=== PATIENT | male | born 1950 | race Two or more races ===

== ENCOUNTER 2020-06-01 15:50 | Inpatient (IN) | payer MEDICAID ==
[~2020-06-01] VITALS: Ht 165.1 cm; Wt 82.6 kg
[2020-06-01] MEDS ORDERED: SODIUM CHLORIDE 0.9% 1,000 ML IV ONE (16:28)
[2020-06-01 16:57] LABS: BASOPHILS % 0.5 % (0.0-2.0); EOSINOPHILS % 4.6 % (0.0-5.0); HEMATOCRIT. 39.2 % (42.0-52.0); HEMOGLOBIN. 13.2 g/dL (14.0-18.0); LYMPHOCYTES % 16.7 % (20.0-50.0); MEAN CORPUSCULAR HEMOGLOBIN 30.4 pg (28.0-32.0); MEAN CORPUSCULAR VOLUME 90.8 fL (80.0-94.0); MEAN PLATELET VOLUME 8.2 fl (7.4-10.4); MONOCYTES % 3.5 % (2.0-8.0); NEUTROPHILS % 74.7 % (40.0-76.0); PLATELET 236 x1000/uL (130-400); RED BLOOD CELL COUNT 4.32 mill/uL (4.7-6.1); RED CELL DISTRIBUTION WIDTH 14.4 % (11.6-14.6)
[2020-06-01 17:02] LABS: CHLORIDE 104 mEq/L (98-107)
[2020-06-01 17:04] LABS: PARTIAL THROMBOPLASTIN TIME 30.9 sec (23.4-31.0); PROTHROMBIN TIME 10.9 sec (9.6-11.0)
[2020-06-01 17:06] LABS: ETHANOL BLOOD < 10 mg/dL
[2020-06-01 17:07] LABS: CLARITY URINE CLEAR (CLEAR); COLOR URINE YELLOW (YELLOW); KETONES URINE 2+ (NEGATIVE); LEUKOCYTE ESTERASE URINE NEGATIVE (NEGATIVE); NITRITE URINE NEGATIVE (NEGATIVE); OCCULT BLOOD URINE TRACE (NEGATIVE); PH URINE 6.5 (4.5-8.0); PROTEIN URINE TRACE (NEGATIVE); SPECIFIC GRAVITY URINE 1.028 (1.005-1.030)
[2020-06-01 17:29] LABS: *AMPHETAMINES SCREEN URINE NEGATIVE (NEGATIVE); *BARBITURATES SCREEN URINE NEGATIVE (NEGATIVE); *COCAINE SCREEN URINE NEGATIVE (NEGATIVE)
[2020-06-01 17:30] LABS: *BENZODIAZEPINES SCREEN URINE NEGATIVE (NEGATIVE); METHADONE URINE SCREEN NEGATIVE (NEGATIVE)
[2020-06-01] MEDS ORDERED: ACETAMINOPHEN 325MG TABLET PO ONE (17:30)
[2020-06-01 17:31] LABS: CANNABINOID URINE SCREEN NEGATIVE (NEGATIVE); OPIATES URINE SCREEN NEGATIVE (NEGATIVE); PHENCYCLIDINE URINE SCREEN NEGATIVE (NEGATIVE)
[2020-06-01] MEDS ORDERED: PIPERACILLIN/TAZ 3.375G PREMIX 50 ML IV ONE (19:00)
[2020-06-01] MEDS ORDERED: VANCOMYCIN 1 G PREMIX 200 ML IV ONE (19:00)
[2020-06-01] MEDS ORDERED: NOREPINEPHRINE 4MG/250ML PMX 250 ML IV PRN (23:15)
[2020-06-01] MEDS ORDERED: SODIUM CHLORIDE 0.9% 1,000 ML IV NR (23:15)
[2020-06-02 05:53] VITALS: BP 127/70
[2020-06-02 05:54] VITALS: BP 127/70
[2020-06-02] MEDS ORDERED: ATORVASTATION PO (06:06)
[2020-06-02] MEDS ORDERED: METFORMIN PO (06:06)
[2020-06-02] MEDS ORDERED: INSULIN SUBCON (06:06)
[2020-06-02] MEDS ORDERED: ASPIRIN PO (06:06)
[2020-06-02] MEDS ORDERED: METF-414 PO (06:08)
[2020-06-02] MEDS ORDERED: ASPI-1497 PO (06:09)
[2020-06-02] MEDS ORDERED: ATOR10TA69 PO (06:09)
[2020-06-02] MEDS ORDERED: DEXTROSE 50% WATER 50ML SYRINGE IV PRN (06:30)
[2020-06-02] MEDS ORDERED: ALBUTEROL 6.7GM HFA INHALER ORI SCH (08:00)
[2020-06-02] MEDS: BLOOD SUGAR DIAGNOSTIC STRIP TEST SCH ×4 (08:28→20:21)
[2020-06-02] MEDS ORDERED: DEXAMETHASONE 4MG TABLET PO SCH (09:00)
[2020-06-02] MEDS ORDERED: AZITHROMYCIN 500 MG in DEXT 5% WATER 250 ML IV SCH (09:00)
[2020-06-02] MEDS: ENOXAPARIN 40MG/0.4ML SYR SUBCUT SCH (09:22)
[2020-06-02] MEDS: ACETAMINOPHEN 325MG TABLET PO PRN ×2 (09:25→17:52)
[2020-06-02] MEDS: METFORMIN HCL 500MG TABLET PO SCH ×2 (09:25→17:51)
[2020-06-02] MEDS: INSULIN LISPRO 100 UNITS/ML SUBCUT SCH ×4 (09:27→20:20)
[2020-06-02 09:42] VITALS: BP 109/73
[2020-06-02] MEDS ORDERED: INSULIN GLARGINE UD 100 UNITS/ML SYR SUBCUT SCH (10:00)
[2020-06-02] MEDS: INSULIN GLARGINE UD 100 UNITS/ML SYR SUBCUT SCH ×2 (10:58→23:16)
[2020-06-02 12:36] VITALS: BP 79/44
[2020-06-02] MEDS: ALBUTEROL (0.083%) 2.5MG/3ML NEB HHN SCH (15:00)
[2020-06-02] MEDS: CEFTRIAXONE 1,000 MG in DEXTROSE 5% WATER 50 ML IV SCH (15:11)
[2020-06-02 16:10] VITALS: BP 116/67
[2020-06-02 20:03] VITALS: BP 95/60
[2020-06-02] MEDS: ATORVASTATIN CALCIUM 40MG TABLET PO SCH (20:20)
[2020-06-03 00:15] VITALS: BP 101/53
[2020-06-03 04:44] VITALS: BP 104/61
[2020-06-03 06:14] LABS: BASOPHILS % 0.3 % (0.0-2.0); EOSINOPHILS % 0.2 % (0.0-5.0); HEMATOCRIT. 35.8 % (42.0-52.0); HEMOGLOBIN. 11.9 g/dL (14.0-18.0); LYMPHOCYTES % 15.4 % (20.0-50.0); MEAN CORPUSCULAR VOLUME 89.7 fL (80.0-94.0); MEAN PLATELET VOLUME 8.3 fl (7.4-10.4); NEUTROPHILS % 81.1 % (40.0-76.0); PLATELET 256 x1000/uL (130-400); RED BLOOD CELL COUNT 3.99 mill/uL (4.7-6.1)
[2020-06-03 06:27] LABS: CHLORIDE 106 mEq/L (98-107)
[2020-06-03] MEDS: BLOOD SUGAR DIAGNOSTIC STRIP TEST SCH ×4 (06:38→21:47)
[2020-06-03 08:33] VITALS: BP 103/59
[2020-06-03] MEDS: METFORMIN HCL 500MG TABLET PO SCH ×2 (09:05→17:41)
[2020-06-03] MEDS: CEFTRIAXONE 1,000 MG in DEXTROSE 5% WATER 50 ML IV SCH (09:06)
[2020-06-03] MEDS: ENOXAPARIN 40MG/0.4ML SYR SUBCUT SCH (09:06)
[2020-06-03] MEDS: INSULIN LISPRO 100 UNITS/ML SUBCUT SCH ×4 (09:09→21:49)
[2020-06-03] MEDS: INSULIN GLARGINE UD 100 UNITS/ML SYR SUBCUT SCH ×2 (11:12→21:50)
[2020-06-03 12:03] VITALS: BP 151/128
[2020-06-03] MEDS: ACETAMINOPHEN 325MG TABLET PO PRN (15:28)
[2020-06-03 16:14] VITALS: BP 106/59
[2020-06-03 20:00] VITALS: BP 95/53
[2020-06-03] MEDS: ATORVASTATIN CALCIUM 40MG TABLET PO SCH (21:47)
[2020-06-03] MEDS: ALBUTEROL (0.083%) 2.5MG/3ML NEB HHN SCH (21:48)
[2020-06-03] MEDS ORDERED: VANCOMYCIN 1250MG in DEXTROSE 5% WATER 250ML IV NR (23:00)
[2020-06-04] VITALS: BP 94/66
[2020-06-04] MEDS: ALBUTEROL (0.083%) 2.5MG/3ML NEB HHN SCH ×4 (02:39→20:32)
[2020-06-04 04:00] VITALS: BP 100/50
[2020-06-04] MEDS: ACETAMINOPHEN 325MG TABLET PO PRN ×2 (06:01→16:17)
[2020-06-04] MEDS: BLOOD SUGAR DIAGNOSTIC STRIP TEST SCH ×4 (06:45→21:00)
[2020-06-04] MEDS ORDERED: GLIPIZIDE 5MG TABLET PO SCH (07:20)
[2020-06-04] MEDS: INSULIN LISPRO 100 UNITS/ML SUBCUT SCH ×4 (07:50→21:00)
[2020-06-04 08:00] VITALS: BP 82/50
[2020-06-04] MEDS: ENOXAPARIN 40MG/0.4ML SYR SUBCUT SCH (09:06)
[2020-06-04] MEDS: METFORMIN HCL 500MG TABLET PO SCH ×2 (09:06→18:29)
[2020-06-04] MEDS: CEFTRIAXONE 1,000 MG in DEXTROSE 5% WATER 50 ML IV SCH (09:07)
[2020-06-04] MEDS: INSULIN GLARGINE UD 100 UNITS/ML SYR SUBCUT SCH ×2 (10:28→21:08)
[2020-06-04] MEDS ORDERED: VANCOMYCIN 750 MG PREMIX 150 ML IV SCH (11:00)
[2020-06-04 12:00] VITALS: BP 112/55
[2020-06-04] MEDS: VANCOMYCIN 1 G PREMIX 200 ML IV SCH ×2 (12:07→22:42)
[2020-06-04 14:41] LABS: BASOPHILS % 0.5 % (0.0-2.0); EOSINOPHILS % 4.7 % (0.0-5.0); HEMATOCRIT. 35.7 % (42.0-52.0); HEMOGLOBIN. 12.2 g/dL (14.0-18.0); MEAN CORPUSCULAR HEMOGLOBIN 30.3 pg (28.0-32.0); MEAN CORPUSCULAR VOLUME 88.9 fL (80.0-94.0); MEAN PLATELET VOLUME 7.3 fl (7.4-10.4); MONOCYTES % 7.5 % (2.0-8.0); NEUTROPHILS % 56.3 % (40.0-76.0); PLATELET 281 x1000/uL (130-400); RED BLOOD CELL COUNT 4.02 mill/uL (4.7-6.1); RED CELL DISTRIBUTION WIDTH 14.2 % (11.6-14.6)
[2020-06-04 14:52] LABS: CHLORIDE 104 mEq/L (98-107)
[2020-06-04] MEDS ORDERED: LANTUSUD SUBCUT (14:55)
[2020-06-04] MEDS ORDERED: POTASSIUM CHLORIDE 20MEQ TABLET SR PO NR (15:00)
[2020-06-04 16:00] VITALS: BP 100/53
[2020-06-04 20:38] VITALS: BP 92/60
[2020-06-04] MEDS: ATORVASTATIN CALCIUM 40MG TABLET PO SCH (20:49)
[2020-06-05] VITALS: BP 96/62
[2020-06-05] MEDS: ACETAMINOPHEN 325MG TABLET PO PRN (01:17)
[2020-06-05] MEDS: ALBUTEROL (0.083%) 2.5MG/3ML NEB HHN SCH ×3 (02:52→12:49)
[2020-06-05 04:00] VITALS: BP 94/62
[2020-06-05] MEDS: BLOOD SUGAR DIAGNOSTIC STRIP TEST SCH ×2 (06:34→12:39)
[2020-06-05] MEDS: INSULIN LISPRO 100 UNITS/ML SUBCUT SCH ×2 (07:50→12:39)
[2020-06-05 08:00] VITALS: BP 108/59
[2020-06-05] MEDS: CEFTRIAXONE 1,000 MG in DEXTROSE 5% WATER 50 ML IV SCH (08:33)
[2020-06-05] MEDS: METFORMIN HCL 500MG TABLET PO SCH (08:43)
[2020-06-05] MEDS: ENOXAPARIN 40MG/0.4ML SYR SUBCUT SCH (08:50)
[2020-06-05] MEDS: INSULIN GLARGINE UD 100 UNITS/ML SYR SUBCUT SCH (10:21)
[2020-06-05] MEDS: VANCOMYCIN 1 G PREMIX 200 ML IV SCH (11:00)
[2020-06-05 12:00] VITALS: BP 112/69
[2020-06-05 12:30] VITALS: BP 112/69
[2020-06-05] MEDS ORDERED: VANCOMYCIN 1 G PREMIX 200 ML IV SCH (20:00)
== END 2020-06-05 13:50 | disposition home or self-care (01) | DRG 720 ==
LOC: ER 15:50 → EDBEDREQTM 18:16 → EDBEDREQ 18:16 → MICUSO 19:01 → EDBEDREQTM 19:03 → EDBEDREQ 19:03 → ENRESERV 22:41 → CANRESERV 22:41 → 7WST 06-02 06:02 → 6WST 06-02 15:34
PROVIDERS: ADMIT Internal Medicine; ATTEND Internal Medicine
DX: A41.9 Sepsis, unspecified organism (principal); G93.41 Metabolic encephalopathy; E44.0 Moderate protein-calorie malnutrition; E87.1 Hypo-osmolality and hyponatremia; D64.9 Anemia, unspecified; E11.9 Type 2 diabetes mellitus without complications; E66.9 Obesity, unspecified; I10 Essential (primary) hypertension; Z03.818 Encounter for observation for suspected exposure to other biological agents ruled out; Z71.3 Dietary counseling and surveillance; Z68.30 Body mass index [BMI] 30.0-30.9, adult; Z79.899 Other long term (current) drug therapy; Z22.330 Carrier of Group B streptococcus
CPT/HCPCS: 36415; 71045; 71250; 72128; 72131; 74176; 80048; 80053; 80202; 80305; 80320; 81003; 82140; 82962; 83036; 83605; 83880; 84145; 84484; 85025; 87635; 93005; 94640; 96365; 97116; 97162; 99285; J0456; J0696; J1650; J1815; J2543; J3370; J7030; J7060; J8540; G0480